=== PATIENT | male | born 1985 | race Caucasian/White ===

== ENCOUNTER 2017-07-25 11:19 | Emergency (ER) | payer OTHER ==
[~2017-07-25] VITALS: Ht 185.4 cm; Wt 118.0 kg
[~2017-07-25 11:19] MED LIST: PANT-47 PO; PANT20TA2 PO
[2017-07-25] MEDS ORDERED: BENZ-16 PO (13:16)
[2017-07-25 15:19] VITALS: BP 123/71
== END 2017-07-25 14:35 | disposition home or self-care (01) ==
LOC: ER 11:19
DX: J06.9 Acute upper respiratory infection, unspecified (principal); G89.29 Other chronic pain; Z87.442 Personal history of urinary calculi; Z79.899 Other long term (current) drug therapy
CPT/HCPCS: 71046; 99284

== ENCOUNTER 2017-09-22 07:55 | Emergency (ER) | payer OTHER ==
[~2017-09-22] VITALS: Ht 6038.7 cm; Wt 112.0 kg
[2017-09-22 07:59] VITALS: BP 150/89
[2017-09-22] MEDS ORDERED: dexamethasone sod phosphate 10mg/ml inj IM STA (08:17)
[2017-09-22] MEDS ORDERED: METH-360 PO (08:20)
[2017-09-22] MEDS ORDERED: NAPR-56 PO (08:20)
[2017-09-22] MEDS ORDERED: ketorolac tromethamine 15mg/ml inj. IM ONE (08:20)
[2017-09-22] MEDS ORDERED: diazepam 5mg tablet PO ONE (08:20)
== END 2017-09-22 09:35 | disposition home or self-care (01) ==
LOC: ER 07:56
DX: S39.012A Strain of muscle, fascia and tendon of lower back, initial encounter (principal); G89.29 Other chronic pain; X50.1XXA Overexertion from prolonged static or awkward postures, initial encounter; Y93.89 Activity, other specified; Y92.89 Other specified places as the place of occurrence of the external cause; Y99.8 Other external cause status
CPT/HCPCS: 96372; 99284; J1100; J1885

== ENCOUNTER 2018-02-23 21:25 | Observation (INO) | payer MEDICAID, OTHER ==
[~2018-02-23] VITALS: Ht 185.4 cm; Wt 110.0 kg
[~2018-02-23 21:25] MED LIST changes: +METH-360 PO
[2018-02-23] MEDS ORDERED: normal saline 1000ML IV soln IVB ONE (21:50)
[2018-02-23 22:22] LABS: BASOPHILS % (AUTO) 0.2 % (0-1); EOSINOPHILS # (AUTO) 0.1 X10'3 (0-0.9); EOSINOPHILS % (AUTO) 0.7 % (0-6); HEMATOCRIT 42.3 % (42.0-52.0); HEMOGLOBIN 14.4 g/dl (14.0-17.9); LYMPHOCYTES # (AUTO) 0.5 X10'3 (1.1-4.8); LYMPHOCYTES % (AUTO) 4.3 % (21-51); MEAN CORPUSCULAR HEMOGLOBIN 28.4 PG (27.0-31.0); MEAN CORPUSCULAR HGB CONC 33.9 % (33.0-36.5); MEAN CORPUSCULAR VOLUME 83.7 FL (78-98); MEAN PLATELET VOLUME 8.4 FL (7.4-10.4); MONOCYTES # (AUTO) 0.4 X10'3 (0-0.9); MONOCYTES % (AUTO) 3.9 % (2-12); NEUTROPHILS # (AUTO) 9.8 X10'3 (1.8-7.7); NEUTROPHILS % (AUTO) 90.9 % (42-75); PLATELET COUNT 266 X10'3 (140-440); RED BLOOD COUNT 5.05 X10'6 (4.70-6.10); RED CELL DISTRIBUTION WIDTH 12.8 % (11.5-14.5); WHITE BLOOD COUNT 10.7 X10'3 (4.5-11.0)
[2018-02-23 22:37] LABS: ALANINE AMINOTRANSFERASE 28 U/L (12-78); ALBUMIN 3.9 G/DL (3.4-5.0); ALKALINE PHOSPHATASE 91 IU/L (46-116); ANION GAP 10 (8-16); ASPARTATE AMINO TRANSFERASE 14 U/L (10-37); BILIRUBIN,TOTAL 1.6 MG/DL (0.1-1.0); BLOOD UREA NITROGEN 15 MG/DL (7-18); BUN/CREATININE RATIO 14.4 (5.4-32.0); CALCIUM 8.5 MG/DL (8.5-10.1); CHLORIDE 102 MMOL/L (99-107); CREATININE 1.04 MG/DL (0.60-1.10); GLUCOSE 112 MG/DL (70-104); MAGNESIUM 1.9 MG/DL (1.5-2.4); PHOSPHORUS 3.3 MG/DL (2.3-4.5); POTASSIUM 3.3 MMOL/L (3.5-5.1); SODIUM 138 MMOL/L (135-145); TOTAL CARBON DIOXIDE 25.8 MMOL/L (24-32); TOTAL PROTEIN 7.8 G/DL (6.4-8.2); eGFR 82 ML/MIN
[2018-02-23 22:47] LABS: D-DIMER 0.35 MG/L FEU (0-0.50); PROTHROMBIN TIME 10.8 SECONDS (9.0-12.0)
[2018-02-23] MEDS ORDERED: nitroGLYCERIN 0.4mg/hour patch TD ONE (23:55)
[2018-02-23] MEDS ORDERED: aspirin 81mg tab.chew PO ONE (23:55)
[2018-02-24] VITALS (12 sets, daily range): BP systolic 100–135; BP diastolic 48–77
[2018-02-24] MEDS ORDERED: regadenoson 0.4mg/5ml syringe IV ONE ×2 (00:15→09:33)
[2018-02-24] MEDS ORDERED: magnesium 1gm/100ml D5W IVPB 100 ML IV PRN (00:15)
[2018-02-24] MEDS ORDERED: ondansetron/PF 4mg/2ml inj IV PRN (00:15)
[2018-02-24] MEDS ORDERED: nitroGLYCERIN 0.4mg SUBLingual tab SL PRN (00:15)
[2018-02-24] MEDS ORDERED: potassium Cl 20 mEq SR tablet PO PRN (00:15)
[2018-02-24] MEDS ORDERED: metoprolol tartrate 1mg/ml inj IV PRN (00:15)
[2018-02-24] MEDS ORDERED: ipratropium/albuterol 3ml nebule NEB PRN (00:15)
[2018-02-24] MEDS ORDERED: magnesium 4gm in 100ml NS 100 ML IV PRN (00:15)
[2018-02-24] MEDS ORDERED: aminophylline 250mg/10ml inj. IV PRN (00:15)
[2018-02-24] MEDS ORDERED: potassium Cl 40MEQ/NS 500ml 500 ML IV PRN ×2 (00:15)
[2018-02-24] MEDS ORDERED: mag hydrox/Alum hydrox/simeth 30ml oral suspension PO PRN (00:15)
[2018-02-24] MEDS ORDERED: magnesium hydroxide 30ml (MOM) UD suspension PO PRN (00:15)
[2018-02-24] MEDS ORDERED: regadenoson 0.4mg/5ml syringe IV PRN (00:40)
[2018-02-24] MEDS: normal saline 1000ml 1,000 ML IV SCH ×2 (02:01→10:14)
[2018-02-24] MEDS: acetaminophen 325mg tablet PO PRN ×2 (02:03→14:26)
[2018-02-24] MEDS: potassium Cl 20 mEq SR tablet PO PRN ×2 (05:01→12:22)
[2018-02-24 06:03] LABS: CHOL/HDL RATIO 2.8 (0.00-4.99); CHOLESTEROL 136 MG/DL (0-200); HDL CHOLESTEROL 49 MG/DL (35-60); LDL CHOLESTEROL 85 MG/DL (50-100); TRIGLYCERIDES 33 MG/DL (20-135)
[2018-02-24] MEDS ORDERED: pantoprazole 40 MG vial IV SCH (08:00)
[2018-02-24] MEDS ORDERED: K and/or MAG REPLACEMENT MC SCH (08:00)
[2018-02-24] MEDS ORDERED: enoxaparin 40mg/0.4ml syringe SQ SCH (08:00)
[2018-02-24] MEDS ORDERED: aminophylline inj. 10 ML IV ONE (09:33)
[2018-02-24] MEDS ORDERED: LEVO750T21 PO (13:37)
== END 2018-02-24 17:46 | disposition home or self-care (01) ==
LOC: ER 21:26 → ED HOLD 02-24 00:14 → PCU 3S 02-24 01:33
PROVIDERS: ADMIT Family Medicine; ATTEND Internal Medicine
DX: R07.89 Other chest pain (principal); R50.9 Fever, unspecified; R00.0 Tachycardia, unspecified; E87.6 Hypokalemia; M54.9 Dorsalgia, unspecified; G89.29 Other chronic pain; E66.01 Morbid (severe) obesity due to excess calories; Z87.891 Personal history of nicotine dependence; Z87.442 Personal history of urinary calculi
CPT/HCPCS: 36415; 71046; 78452; 80053; 80061; 83605; 83735; 84100; 84145; 84484; 85025; 85379; 85610; 87040; 87070; 93005; 93017; 93306; 96372; 96374; 96375; 99285; A9500; C9113; G0378; J0280; J1650; J2405; J7030

== ENCOUNTER 2018-03-07 22:01 | Emergency (ER) | payer MEDICAID, OTHER ==
[~2018-03-07] VITALS: Ht 185.4 cm; Wt 100.0 kg
[~2018-03-07 22:01] MED LIST changes: +LEVO750T21 PO; -METH-360 PO; -PANT-47 PO; -PANT20TA2 PO
[2018-03-07] MEDS ORDERED: normal saline 1000ML IV soln IVB ONE (22:10)
[2018-03-07] MEDS ORDERED: ondansetron/PF 4mg/2ml inj IV ONE (22:10)
[2018-03-07] MEDS ORDERED: ketorolac trometh. 30mg/ml inj. IV ONE (22:10)
[2018-03-07] MEDS ORDERED: tamsulosin 0.4mg capsule PO ONE (22:11)
[2018-03-07] MEDS: morphine 4 MG/ML inj SYRINge IV PRN ×2 (22:30→23:41)
[2018-03-07 22:33] LABS: BASOPHILS % (AUTO) 0.3 % (0-1); EOSINOPHILS # (AUTO) 0.1 X10'3 (0-0.9); EOSINOPHILS % (AUTO) 1.3 % (0-6); HEMATOCRIT 42.7 % (42.0-52.0); HEMOGLOBIN 14.4 g/dl (14.0-17.9); LYMPHOCYTES # (AUTO) 1.2 X10'3 (1.1-4.8); LYMPHOCYTES % (AUTO) 11.8 % (21-51); MEAN CORPUSCULAR HEMOGLOBIN 28.2 PG (27.0-31.0); MEAN CORPUSCULAR HGB CONC 33.6 % (33.0-36.5); MEAN CORPUSCULAR VOLUME 83.7 FL (78-98); MEAN PLATELET VOLUME 8.2 FL (7.4-10.4); MONOCYTES # (AUTO) 0.4 X10'3 (0-0.9); MONOCYTES % (AUTO) 3.8 % (2-12); NEUTROPHILS # (AUTO) 8.6 X10'3 (1.8-7.7); NEUTROPHILS % (AUTO) 82.8 % (42-75); PLATELET COUNT 384 X10'3 (140-440); RED CELL DISTRIBUTION WIDTH 12.8 % (11.5-14.5); WHITE BLOOD COUNT 10.4 X10'3 (4.5-11.0)
[2018-03-07 22:46] LABS: ALANINE AMINOTRANSFERASE 30 U/L (12-78); ALBUMIN 3.9 G/DL (3.4-5.0); ALKALINE PHOSPHATASE 86 IU/L (46-116); ANION GAP 12 (8-16); ASPARTATE AMINO TRANSFERASE 16 U/L (10-37); BILIRUBIN,TOTAL 1.1 MG/DL (0.1-1.0); BLOOD UREA NITROGEN 16 MG/DL (7-18); CALCIUM 8.3 MG/DL (8.5-10.1); CHLORIDE 102 MMOL/L (99-107); CREATININE 1.33 MG/DL (0.60-1.10); GLUCOSE 92 MG/DL (70-104); POTASSIUM 3.3 MMOL/L (3.5-5.1); SODIUM 139 MMOL/L (135-145); TOTAL CARBON DIOXIDE 24.9 MMOL/L (24-32); eGFR 62 ML/MIN
[2018-03-07] MEDS ORDERED: FLO0.4C PO (23:16)
[2018-03-07] MEDS ORDERED: IBUP-1984 PO (23:16)
[2018-03-07] MEDS ORDERED: ONDA4TAB9 PO (23:16)
[2018-03-07] MEDS ORDERED: HYDR-4383 PO (23:16)
[2018-03-07 23:52] VITALS: BP 135/61
[2018-03-07 23:58] LABS: CLARITY,URINE SLIGHTLY CLOUDY (Clear); COLOR,URINE YELLOW (Yellow); GLUCOSE, URINE NEGATIVE (Neg); KETONES,URINE NEGATIVE (Neg); LEUKOCYTE ESTERASE ,URINE NEGATIVE (Neg); NITRITES, URINE NEGATIVE (Neg); OCCULT BLOOD,URINE NEGATIVE (Neg); PH,URINE 5.5 (4.8-8.0); PROTEIN,URINE NEGATIVE (Neg); UROBILINOGEN,URINE 0.2 E.U/dL (0.2-1.0)
[2018-03-08] LABS: UA COLLECTION TYPE CLN CATCH MIDSTREAM
[2018-03-08 00:11] LABS: MUCUS STRANDS MANY /LPF (Neg); SQUAMOUS EPITHELIAL CELL,UR MODERATE /LPF (FEW)
[2018-03-08 00:15] LABS: BACTERIA,URINE 1+ /HPF (Neg); CAL OXALATE CRYSTALS 2+ /HPF (NEGATIVE); RBC,URINE 0-2 /HPF (0-2); WBC,URINE 0-4 /HPF (0-4)
== END 2018-03-08 | disposition home or self-care (01) ==
LOC: ER 22:02
DX: N20.0 Calculus of kidney (principal); R10.31 Right lower quadrant pain; G89.29 Other chronic pain; Z87.442 Personal history of urinary calculi; Z91.030 Bee allergy status; Z79.899 Other long term (current) drug therapy
CPT/HCPCS: 36415; 74176; 80053; 81001; 85025; 96361; 96374; 96375; 96376; 99285; J1885; J2270; J2405; J7030; 81003

== ENCOUNTER 2018-08-20 08:40 | Emergency (ER) | payer MEDICAID, OTHER ==
[~2018-08-20] VITALS: Ht 182.9 cm; Wt 113.0 kg
[~2018-08-20 08:40] MED LIST changes: +HYDR-4383 PO; -LEVO750T21 PO
--- NOTE | 2018-08-20 08:50 | NUR ---
TO ER #8 WITH C/O RIGHT FLANK PAIN THAT STARTED THIS MORNING UPON AWAKENING. STATES HX KIDNEY STONES IN THE PAST AND THIS FEELS LIKE THE SAME SYMPTOMS. STATES PAIN RADIATES TO RIGHT TESTICLE AND PENIS. DENIES HEMATURIA OR DYSURIA. ABD SOFT. HAD BM THIS MORNING.
[2018-08-20] MEDS ORDERED: normal saline 1000ML IV soln IVB ONE ×2 (09:20→09:25)
[2018-08-20] MEDS ORDERED: ketorolac trometh. 30mg/ml inj. IV ONE (09:20)
[2018-08-20] MEDS ORDERED: ondansetron/PF 4mg/2ml inj IV ONE ×2 (09:20→09:25)
[2018-08-20] MEDS ORDERED: morphine 4 MG/ML inj SYRINge IV PRN ×2 (09:20→09:25)
[2018-08-20 10:03] LABS: BASOPHILS % (AUTO) 0.7 % (0-1); EOSINOPHILS # (AUTO) 0.1 X10'3 (0-0.9); EOSINOPHILS % (AUTO) 1.4 % (0-6); HEMATOCRIT 42.8 % (42.0-52.0); HEMOGLOBIN 14.5 g/dl (14.0-17.9); LYMPHOCYTES # (AUTO) 2.4 X10'3 (1.1-4.8); LYMPHOCYTES % (AUTO) 46.2 % (21-51); MEAN CORPUSCULAR HEMOGLOBIN 28.1 PG (27.0-31.0); MEAN CORPUSCULAR VOLUME 82.6 FL (78-98); MONOCYTES # (AUTO) 0.4 X10'3 (0-0.9); MONOCYTES % (AUTO) 6.8 % (2-12); NEUTROPHILS # (AUTO) 2.3 X10'3 (1.8-7.7); NEUTROPHILS % (AUTO) 44.9 % (42-75); PLATELET COUNT 231 X10'3 (140-440); RED BLOOD COUNT 5.18 X10'6 (4.70-6.10); RED CELL DISTRIBUTION WIDTH 13.5 % (11.5-14.5); WHITE BLOOD COUNT 5.2 X10'3 (4.5-11.0)
[2018-08-20 10:11] LABS: ALANINE AMINOTRANSFERASE 30 U/L (12-78); ALBUMIN/GLOBULIN RATIO 1.1 (1.1-1.5); ALKALINE PHOSPHATASE 90 IU/L (46-116); ANION GAP 11 (8-16); ASPARTATE AMINO TRANSFERASE 17 U/L (10-37); BILIRUBIN,TOTAL 1.1 MG/DL (0.1-1.0); BLOOD UREA NITROGEN 11 MG/DL (7-18); BUN/CREATININE RATIO 12.9 (5.4-32.0); CALCIUM 8.6 MG/DL (8.5-10.1); CHLORIDE 103 MMOL/L (99-107); CREATININE 0.85 MG/DL (0.60-1.10); GLUCOSE 108 MG/DL (70-104); LIPASE 121 U/L (73-393); POTASSIUM 3.2 MMOL/L (3.5-5.1); SODIUM 141 MMOL/L (135-145); TOTAL CARBON DIOXIDE 26.7 MMOL/L (24-32); TOTAL PROTEIN 7.6 G/DL (6.4-8.2); eGFR > 90 ML/MIN
[2018-08-20 10:23] LABS: CLARITY,URINE SLIGHTLY CLOUDY (Clear); COLOR,URINE STRAW (Yellow); GLUCOSE, URINE NEGATIVE (Neg); KETONES,URINE NEGATIVE (Neg); LEUKOCYTE ESTERASE ,URINE NEGATIVE (Neg); NITRITES, URINE NEGATIVE (Neg); OCCULT BLOOD,URINE LARGE (Neg); PROTEIN,URINE NEGATIVE (Neg); UROBILINOGEN,URINE 0.2 E.U/dL (0.2-1.0)
[2018-08-20 10:30] LABS: UA COLLECTION TYPE VOIDED
[2018-08-20 10:32] LABS: RBC,URINE 50-100 /HPF (0-2); WBC,URINE 0-4 /HPF (0-4)
[2018-08-20 10:33] LABS: AMORPHOUS URATES 1+; BACTERIA,URINE NONE SEEN /HPF (Neg); MUCUS STRANDS NONE SEEN /LPF (Neg); SQUAMOUS EPITHELIAL CELL,UR NONE SEEN /LPF (FEW)
[2018-08-20] MEDS ORDERED: HYDR-4353 PO (11:11)
[2018-08-20 11:20] VITALS: BP 133/96
== END 2018-08-20 11:23 | disposition home or self-care (01) ==
LOC: ER 08:40
DX: N20.0 Calculus of kidney (principal); N23 Unspecified renal colic; R11.2 Nausea with vomiting, unspecified; G89.29 Other chronic pain; G30.9 Alzheimer's disease, unspecified; Z91.030 Bee allergy status; Z79.899 Other long term (current) drug therapy
CPT/HCPCS: 36415; 80053; 81001; 83690; 85025; 96361; 96374; 96375; 99283; J1885; J2270; J2405; J7030

== ENCOUNTER 2018-09-13 19:22 | Emergency (ER) | payer OTHER ==
[~2018-09-13] VITALS: Ht 185.4 cm; Wt 110.0 kg
[~2018-09-13 19:22] MED LIST changes: +HYDR-4353 PO
[2018-09-13 19:29] VITALS: BP 169/100
[2018-09-13] MEDS ORDERED: LIDOcaine 1% 30ml preserv. free vial IJ STA (20:07)
[2018-09-13] MEDS ORDERED: TETanus/Pertussis (Acell)/Diphther VAC/PF (Tdap-Adult) 0.5ml syringe IMVAC ONE (20:10)
== END 2018-09-13 21:27 | disposition home or self-care (01) ==
LOC: ER 19:22
DX: S61.211A Laceration without foreign body of left index finger without damage to nail, initial encounter (principal); G89.29 Other chronic pain; Z79.899 Other long term (current) drug therapy; W26.0XXA Contact with knife, initial encounter; Y93.89 Activity, other specified; Y92.89 Other specified places as the place of occurrence of the external cause; Y99.8 Other external cause status
CPT/HCPCS: 12002; 90471; 90715; 99283; J3490

== ENCOUNTER 2018-09-23 08:47 | Emergency (ER) | payer OTHER ==
[~2018-09-23] VITALS: Ht 177.8 cm; Wt 118.0 kg
[~2018-09-23 08:47] MED LIST changes: -HYDR-4353 PO
[2018-09-23 08:53] VITALS: BP 155/91
--- NOTE | 2018-09-23 08:58 | NUR ---
7 SUTURES REMOVED. NO DISTRESS.
== END 2018-09-23 09:17 | disposition home or self-care (01) ==
LOC: ER 08:47
DX: S61.211D Laceration without foreign body of left index finger without damage to nail, subsequent encounter (principal); Z48.02 Encounter for removal of sutures; G89.29 Other chronic pain; Z79.899 Other long term (current) drug therapy; W26.0XXD Contact with knife, subsequent encounter
CPT/HCPCS: 99281

== ENCOUNTER 2021-01-26 16:17 | Emergency (ER) | payer MEDICAID ==
[~2021-01-26] VITALS: Ht 185.4 cm; Wt 142.7 kg
[~2021-01-26 16:17] MED LIST changes: +ALBU8.5H17 IH; +BENZ-16 PO
[2021-01-26 18:59] LABS: BASOPHILS # (AUTO) 0.1 X10'3 (0-0.2); EOSINOPHILS # (AUTO) 0.1 X10'3 (0-0.9); EOSINOPHILS % (AUTO) 1.1 % (0-6); HEMATOCRIT 45.2 % (42.0-52.0); HEMOGLOBIN 15.7 g/dl (14.0-17.9); LYMPHOCYTES # (AUTO) 2.3 X10'3 (1.1-4.8); MEAN CORPUSCULAR HEMOGLOBIN 28.1 PG (27.0-31.0); MEAN CORPUSCULAR HGB CONC 34.6 g/dL (33.0-36.5); MEAN CORPUSCULAR VOLUME 81.2 FL (78-98); MEAN PLATELET VOLUME 8.1 FL (7.4-10.4); MONOCYTES # (AUTO) 0.7 X10'3 (0-0.9); MONOCYTES % (AUTO) 6.6 % (2-12); NEUTROPHILS # (AUTO) 7.6 X10'3 (1.8-7.7); NEUTROPHILS % (AUTO) 70.3 % (42-75); PLATELET COUNT 358 X10'3 (140-440); RED BLOOD COUNT 5.58 X10'6 (4.70-6.10); RED CELL DISTRIBUTION WIDTH 13.4 % (11.5-14.5); WHITE BLOOD COUNT 10.9 X10'3 (4.5-11.0)
[2021-01-26 19:07] LABS: ALBUMIN 3.5 G/DL (3.4-5.0); ANION GAP 10 (8-16); BLOOD UREA NITROGEN 10 MG/DL (7-18); BUN/CREATININE RATIO 9.7 (5.4-32.0); CALCIUM 8.9 MG/DL (8.5-10.1); CHLORIDE 104 MMOL/L (99-107); CREATININE 1.03 MG/DL (0.60-1.10); GLUCOSE 108 MG/DL (70-104); POTASSIUM 3.1 MMOL/L (3.5-5.1); SODIUM 143 MMOL/L (135-145); TOTAL CARBON DIOXIDE 29.1 MMOL/L (24-32); eGFR 81 ML/MIN
[2021-01-26 20:09] VITALS: BP 181/93
== END 2021-01-26 20:11 | disposition home or self-care (01) ==
LOC: ER 16:18
DX: N20.0 Calculus of kidney (principal); R31.9 Hematuria, unspecified; G89.29 Other chronic pain; Z87.440 Personal history of urinary (tract) infections; Z79.899 Other long term (current) drug therapy; Z91.030 Bee allergy status
CPT/HCPCS: 36415; 74176; 80048; 85025; 99284

== ENCOUNTER 2021-05-11 11:49 | Emergency (ER) | payer MEDICAID ==
[~2021-05-11] VITALS: Ht 185.4 cm; Wt 136.4 kg
[2021-05-11 11:52] VITALS: BP 193/123
[2021-05-11 12:44] LABS: EOSINOPHILS % (AUTO) 0.8 % (0-6); HEMATOCRIT 45.1 % (42.0-52.0); HEMOGLOBIN 15.2 g/dl (14.0-17.9); LYMPHOCYTES # (AUTO) 1.4 X10'3 (1.1-4.8); LYMPHOCYTES % (AUTO) 31.4 % (21-51); MEAN CORPUSCULAR HEMOGLOBIN 27.5 PG (27.0-31.0); MEAN CORPUSCULAR HGB CONC 33.7 g/dL (33.0-36.5); MEAN CORPUSCULAR VOLUME 81.7 FL (78-98); MEAN PLATELET VOLUME 8.2 FL (7.4-10.4); MONOCYTES # (AUTO) 0.4 X10'3 (0-0.9); MONOCYTES % (AUTO) 9.4 % (2-12); NEUTROPHILS # (AUTO) 2.6 X10'3 (1.8-7.7); NEUTROPHILS % (AUTO) 57.4 % (42-75); PLATELET COUNT 262 X10'3 (140-440); RED BLOOD COUNT 5.52 X10'6 (4.70-6.10); RED CELL DISTRIBUTION WIDTH 13.7 % (11.5-14.5); WHITE BLOOD COUNT 4.5 X10'3 (4.5-11.0)
[2021-05-11 13:01] LABS: ALANINE AMINOTRANSFERASE 38 U/L (12-78); ALBUMIN 3.6 G/DL (3.4-5.0); ALBUMIN/GLOBULIN RATIO 0.9 (1.1-1.5); ALKALINE PHOSPHATASE 97 IU/L (46-116); ANION GAP 11 (8-16); ASPARTATE AMINO TRANSFERASE 21 U/L (10-37); BILIRUBIN,TOTAL 0.8 MG/DL (0.1-1.0); BLOOD UREA NITROGEN 11 MG/DL (7-18); BUN/CREATININE RATIO 13.9 (5.4-32.0); C-REACTIVE PROTEIN 0.55 MG/DL (0.0-0.5); CALCIUM 8.2 MG/DL (8.5-10.1); CHLORIDE 103 MMOL/L (99-107); CREATININE 0.79 MG/DL (0.60-1.10); GLUCOSE 99 MG/DL (70-104); POTASSIUM 3.5 MMOL/L (3.5-5.1); SODIUM 141 MMOL/L (135-145); TOTAL CARBON DIOXIDE 27.3 MMOL/L (24-32); TOTAL PROTEIN 7.7 G/DL (6.4-8.2); eGFR > 90 ML/MIN
[2021-05-11] MEDS ORDERED: IBUP-1986 PO (16:06)
[2021-05-11] MEDS ORDERED: LIDO700A32 TOP (16:06)
== END 2021-05-11 16:09 | disposition home or self-care (01) ==
LOC: ER 11:50
DX: M25.551 Pain in right hip (principal); G89.29 Other chronic pain; Z87.442 Personal history of urinary calculi; Z79.899 Other long term (current) drug therapy
CPT/HCPCS: 36415; 80053; 85025; 85651; 86140; 93005; 99284

== ENCOUNTER 2021-05-18 21:37 | Emergency (ER) | payer MEDICAID ==
[~2021-05-18] VITALS: Ht 185.4 cm; Wt 145.0 kg
[~2021-05-18 21:37] MED LIST changes: +IBUP-1986 PO; +LIDO700A32 TOP
[2021-05-18] MEDS ORDERED: ketorolac trometh inj. 60 MG/2 ML VIAL IM ONE (23:50)
[2021-05-19] MEDS ORDERED: HYDROcodone/acetaminophen 10/325mg tab PO ONE (01:45)
[2021-05-19 02:11] VITALS: BP 149/99
== END 2021-05-19 02:13 | disposition home or self-care (01) ==
LOC: ER 21:38
DX: M25.551 Pain in right hip (principal); G89.29 Other chronic pain; Z87.442 Personal history of urinary calculi; Z91.030 Bee allergy status; Z79.899 Other long term (current) drug therapy
CPT/HCPCS: 73502; 99283; J1885

== ENCOUNTER 2022-11-03 16:57 | Emergency (ER) | payer SELFPAY ==
[~2022-11-03] VITALS: Ht 185.4 cm; Wt 150.0 kg
[2022-11-03] MEDS ORDERED: CEPH-585 PO (19:51)
== END 2022-11-03 20:02 | disposition home or self-care (01) ==
LOC: ER 16:58
DX: L03.116 Cellulitis of left lower limb (principal); Z91.030 Bee allergy status
CPT/HCPCS: 93971; 99284

== ENCOUNTER 2022-11-12 23:01 | Emergency (ER) | payer SELFPAY ==
[~2022-11-12] VITALS: Ht 185.4 cm; Wt 150.0 kg
[~2022-11-12 23:01] MED LIST changes: +CEPH-585 PO
[2022-11-13] MEDS ORDERED: cephalexin 250mg capsule PO ONE (01:30)
[2022-11-13] MEDS ORDERED: cephalexin 500mg capsule PO ONE (01:45)
[2022-11-13 01:49] VITALS: BP 170/110
[2022-11-13] MEDS ORDERED: FURO-150 PO (01:55)
[2022-11-13] MEDS ORDERED: CEPH-585 PO (01:55)
[2022-11-13] MEDS ORDERED: LISI1TAB53 PO (01:55)
[2022-11-13] MEDS ORDERED: POTA-207 PO (01:55)
== END 2022-11-13 02:11 | disposition home or self-care (01) ==
LOC: ER 23:01
DX: L03.116 Cellulitis of left lower limb (principal); R60.0 Localized edema; I10 Essential (primary) hypertension; G89.29 Other chronic pain; Z87.442 Personal history of urinary calculi; Z79.899 Other long term (current) drug therapy
CPT/HCPCS: 82948; 99283

== ENCOUNTER 2023-03-24 20:38 | Emergency (ER) | payer OTHER ==
[~2023-03-24] VITALS: Ht 185.4 cm; Wt 150.1 kg
[~2023-03-24 20:38] MED LIST changes: +LISI1TAB53 PO
[2023-03-24 21:38] VITALS: BP 180/108; PULSE 94; RESP 18; TEMP 97.9; O2SAT 99
--- NOTE | 2023-03-25 04:40 | NUR ---
I have reviewed and agree with assessment of [employer].
== END 2023-03-24 21:40 | disposition home or self-care (01) ==
LOC: ER 20:39
DX: S61.210A Laceration without foreign body of right index finger without damage to nail, initial encounter (principal); G89.29 Other chronic pain; M54.9 Dorsalgia, unspecified; Z87.442 Personal history of urinary calculi; Z91.030 Bee allergy status; Z79.899 Other long term (current) drug therapy
CPT/HCPCS: 12001; 99282; A6449

== ENCOUNTER 2023-03-28 19:48 | Emergency (ER) | payer OTHER ==
[~2023-03-28] VITALS: Ht 185.4 cm; Wt 152.6 kg
[2023-03-28] MEDS ORDERED: CEPH-585 PO (19:58)
[2023-03-28 20:25] VITALS: BP 193/117; PULSE 96; RESP 16; TEMP 98; O2SAT 96
== END 2023-03-28 20:26 | disposition home or self-care (01) ==
LOC: ER 19:49
DX: L02.512 Cutaneous abscess of left hand (principal); G89.29 Other chronic pain; M54.9 Dorsalgia, unspecified; Z79.899 Other long term (current) drug therapy
CPT/HCPCS: 99283